=== PATIENT | female | born 1960 | race American Indian/Alaskan Native ===

== ENCOUNTER 2022-06-02 03:59 | Inpatient (IN) | payer MEDICAID ==
[2022-06-02] MEDS ORDERED: ONDANSETRON 4 MG ODT TAB PO ONE (04:21)
[2022-06-02] MEDS ORDERED: MORPHINE 4 MG/1 ML INJ IV ONE (04:21)
[2022-06-02] MEDS ORDERED: SODIUM CHLORIDE 0.9% 500 ML 500 ML IV ONE (04:21)
--- NOTE | 2022-06-02 04:24 | Event Note ---
Date: 06/02/22 EMS documentation not available at time of chart dictation Verbal report received from emergency medical services Medical screening examination note: 61-year-old female, with a history of stroke, unknown if residual deficits, presenting to the department today with a primary complaint of abdominal pain, with nausea and vomiting. She moves 4 extremities, speaks in complete sentences, and does not have dysarthria. There is no obvious facial droop. The tongue is midline. EMS is uncertain if the patient had a right-sided facial droop in the field. They report that Accu-Chek is within normal limits. Obtain appropriate laboratory studies, treat symptoms, obtain appropriate imaging studies, EKG, detailed history and physical to be performed by oncoming provider At the moment, the patient is protecting airway, moving 4 extremities, blood pressure is reported to be within normal limits and acceptable, and the presentation at this time is not consistent with an acute ischemic stroke
[2022-06-02 05:07] LABS: Basophils # (Auto) 0.1 K/mm3 (0.0-0.1); Basophils % (Auto) 0.6 % (0.0-1.8); Eosinophils # (Auto) 0.3 K/mm3 (0.0-0.4); Hematocrit 39.9 % (30.3-42.9); Hemoglobin 12.8 gm/dl (10.1-14.3); Lymphocytes # (Auto) 1.7 K/mm3 (1.2-5.4); Lymphocytes % (Auto) 13.7 % (13.4-35.0); Mean Corpuscular HGB Conc 32 % (30-34); Mean Corpuscular Volume 81 fl (79-97); Monocytes # (Auto) 0.7 K/mm3 (0.0-0.8); Monocytes % (Auto) 5.7 % (0.0-7.3); Platelet Count 392 K/mm3 (140-440); Red Blood Count 4.93 M/mm3 (3.65-5.03)
[2022-06-02 05:16] LABS: INR 0.87 (0.87-1.13)
[2022-06-02 05:27] LABS: Alanine Aminotransferase 19 units/L (7-56); Albumin 5.2 g/dL (3.9-5); BUN/Creatinine Ratio 14; Bilirubin,Direct < 0.2 mg/dL (0-0.2); Blood Urea Nitrogen 26 mg/dL (7-17); Calcium 11.4 mg/dL (8.4-10.2); Hemolysis Index 11
[2022-06-02] MEDS ORDERED: SODIUM CHLORIDE 0.9% 1000 ML 1,000 ML IV ONE (05:41)
--- NOTE | 2022-06-02 06:28 | Cat Scan Report ---
CT head without contrast INDICATION : History of stroke. TECHNIQUE: Axial imaging performed from the skull apex through the skull base without the use of con trast. All CT examinations performed at this facility utilize dose modulation, iterative reconstruct ion or weight-based dosing, when appropriate, to reduce radiation dose to as low as reasonably achiev able. COMPARISON: None FINDINGS: Focal chronic appearing infarct identified along the right frontoparietal lobe near the melchor cande. No acute intracranial hemorrhage or parenchymal abnormality. Ventricles are normal in size and appear symmetric. Soft tissues including the orbits appear normal. No acute osseous abnormality. Sinuses and mastoid air cells are clear. IMPRESSION: No acute intracranial abnormality. Signer Name: Isiah Kay MD Signed: 06/02/2022 6:23 AM Workstation Name: [email or web address]
--- NOTE | 2022-06-02 06:32 | Cat Scan Report ---
CT ABDOMEN AND PELVIS WITHOUT CONTRAST INDICATION / CLINICAL INFORMATION: Acute abdominal pain with nausea and vomit. TECHNIQUE: Axial CT images were obtained through the abdomen and pelvis without IV contrast. All CT scans at [facility] location are performed using CT dose reduction for ALARA by means of automated exposure control. COMPARISON: None available. FINDINGS: LOWER CHEST: No significant abnormality. LIVER: No significant abnormality. GALLBLADDER: Fluid distended with multiple gallstones. BILE DUCTS: No significant abnormality. PANCREAS: No significant abnormality. SPLEEN: No significant abnormality. ADRENALS: No significant abnormality. RIGHT KIDNEY and URETER: No significant abnormality. LEFT KIDNEY and URETER: No significant abnormality. STOMACH and SMALL BOWEL: No significant abnormality. COLON: Mild fluid-filled:. . PERITONEUM: No free fluid. No free air. No fluid collection. LYMPH NODES: No significant adenopathy. AORTA and ARTERIES: Mild atherosclerotic disease. Mild ectasia. IVC and VEINS: No significant abnormality. URINARY BLADDER: No significant abnormality. REPRODUCTIVE ORGANS: The right adnexa/ovary is asymmetric with enlarged with respect to the left and contains several calcifications. ADDITIONAL FINDINGS: None. SKELETAL SYSTEM: No significant abnormality. IMPRESSION: 1. Fluid distended gallbladder with multiple gallstones. 2. The right ovary appears mildly asymmetrically enlarged with respect to the left and contain severa l small calcifications. Pelvic ultrasound/[employer]ILING[employer] INSTRUCTOR consultation suggested. Signer Name: Isiah Kay MD Signed: 06/02/2022 6:28 AM Workstation Name: [email or web address]
[2022-06-02] MEDS ORDERED: MAGNESIUM SULFATE 2 GM/50 ML BAG IV ONE (07:21)
--- NOTE | 2022-06-02 07:42 | Emergency Department Report ---
HPI - General Chief Complaint: Abdominal Pain Time Seen by Provider: 06/02/22 07:18 - [facility] HPI: Room 18 The patient is a 61-year-old female present with a chief complaint of abdominal pain. The patient states last night at approximately 2200 she developed diffuse periumbilical abdominal pain described as cramping in nature. Patient states the pain was constant and associated with it frequent diarrhea. Patient states she did not develop nausea and vomiting. Patient denies history of fever. Patient states her last meal prior to her symptoms included a hamburger which she ate 4 hours prior to the onset of pain. ED Past Medical Hx - Past Medical History Previous Medical History?: Yes Hx Hypertension: Yes Hx Diabetes: Yes - Surgical History Past Surgical History?: No - Family History Family history: no significant - Social History Smoking Status: Former Smoker (None x40 years) Substance Use Type: None (Denies illicit drug use) ED Review of Systems ROS: Stated complaint: N/V/D- ABD PAIN Other details as noted in HPI Constitutional: denies: fever Eyes: denies: eye pain ENT: denies: throat pain Respiratory: no symptoms reported Cardiovascular: denies: chest pain Endocrine: no symptoms reported Gastrointestinal: abdominal pain, nausea, vomiting, diarrhea Genitourinary: denies: dysuria Musculoskeletal: denies: back pain Neurological: denies: headache Physical Exam - Physical Exam Vital Signs: Vital Signs 06/02/22 06/02/22 04:00 06:22 Temperature 99.1 F Pulse Rate 82 Respiratory 18 20 Rate Blood Pressure 115/81 O2 Sat by Pulse 100 99 Oximetry Physical Exam: GENERAL: The patient is well-developed well-nourished female lying on stretcher not appearing to be in acute distress. [] HEENT: Normocephalic. Atraumatic. Extraocular motions are intact. Patient has moist mucous membranes. NECK: Supple. Trachea midline CHEST/LUNGS: Clear to auscultation. There is no respiratory distress noted. HEART/CARDIOVASCULAR: Regular. There is no tachycardia. There is no gallop rub or murmur. ABDOMEN: Abdomen is soft, nontender. Patient has normal bowel sounds. There is no abdominal distention. Absent Jensen sign SKIN: There is no rash. There is no edema. There is no diaphoresis. NEURO: The patient is awake, alert, and oriented. The patient is cooperative. The patient has no focal neurologic deficits. The patient has normal speech. GCS 15 MUSCULOSKELETAL: There is no evidence of acute injury. ED Course Vital Signs 06/02/22 06/02/22 04:00 06:22 Temperature 99.1 F Pulse Rate 82 Respiratory 18 20 Rate Blood Pressure 115/81 O2 Sat by Pulse 100 99 Oximetry - Consultations Consultation #1: 06/02/22 09:36 Surgery paged-Case discussed with surgeon Dr. Beltran. Will evaluate patient 06/02/22 11:[address] Beltran patient to be admitted by the hospitalist with plan for cholecystectomy ED Medical Decision Making - Lab Data Result diagrams: 06/02/22 04:40 06/02/22 04:40 Laboratory Tests 06/02/22 06/02/22 06/02/22 04:40 04:40 04:40 WBC 12.6 H RBC 4.93 Hgb 12.8 Hct 39.9 MCV 81 MCH 26 L MCHC 32 RDW 17.0 H Plt Count 392 Lymph % (Auto) 13.7 [place] % (Auto) 5.7 Eos % (Auto) 2.0 Baso % (Auto) 0.6 Lymph # (Auto) 1.7 [place] # (Auto) 0.7 Eos # (Auto) 0.3 Baso # (Auto) 0.1 Seg Neutrophils % 78.0 H Seg Neutrophils # 9.9 H PT 12.8 INR 0.87 Sodium 144 Potassium 3.8 Chloride 104.5 Carbon Dioxide 20 L Anion Gap 23 BUN 26 H Creatinine 1.9 H Estimated GFR 27 BUN/Creatinine Ratio 14 Glucose 204 H Calcium 11.4 H Magnesium Total Bilirubin 0.40 Direct Bilirubin < 0.2 Indirect Bilirubin 0.2 AST 18 ALT 19 Alkaline Phosphatase 108 Total Creatine Kinase Troponin T Total Protein 9.1 H Albumin 5.2 H Albumin/Globulin Ratio 1.3 Lipase 43 TSH Plasma/Serum Alcohol 06/02/22 06/02/22 06/02/22 04:40 04:40 04:40 WBC RBC Hgb Hct MCV MCH MCHC RDW Plt Count Lymph % (Auto) [place] % (Auto) Eos % (Auto) Baso % (Auto) Lymph # (Auto) [place] # (Auto) Eos # (Auto) Baso # (Auto) Seg Neutrophils % Seg Neutrophils # PT INR Sodium Potassium Chloride Carbon Dioxide Anion Gap BUN Creatinine Estimated GFR BUN/Creatinine Ratio Glucose Calcium Magnesium 1.60 L Total Bilirubin Direct Bilirubin Indirect Bilirubin AST ALT Alkaline Phosphatase Total Creatine Kinase 169 H Troponin T < 0.010 Total Protein Albumin Albumin/Globulin Ratio Lipase TSH 2.520 Plasma/Serum Alcohol < 0.01 - Radiology Data Radiology results: image reviewed (CT abdomen pelvis, portable quadrant ultrasound, pelvic ultrasound) [address] [address] Ultrasound Report Signed Patient: NOLA RANDOLPH MR#: [id number] : 1960 Acct:[id number] Age/Sex: 61 / F ADM Date: 06/02/22 Loc: ED Attending Dr: Ordering Physician: ROBERT JORDAN MD Date of Service: 06/02/22 Procedure(s): US transvaginal Accession Number(s): [id number] cc: ROBERT JORDAN MD ULTRASOUND PELVIS INDICATION: Abnormal appearing ovary on CT. TECHNIQUE: Transabdominal and Transvaginal. Duplex Color Doppler used: Yes. COMPARISON: None available FINDINGS: Uterus: Present. Size: 7.6 x 3.2 x 5.9 cm. Endometrial complex: Normal measuring 0.3 cm. Mass lesions: 3.8 cm pedunculated fibroid. Additional findings: None. Right Ovary -- Normal. Blood flow: Normal. Cyst or mass: None. Left Ovary-- Normal. Blood flow: Normal. Cyst or mass: None. Urinary Bladder: Normal. Free Fluid: None. Additional Findings: None. [address] [address] Ultrasound Report Signed Patient: NOLA RANDOLPH MR#: [id number] : 1960 Acct:[id number] Age/Sex: 61 / F ADM Date: 06/02/22 Loc: ED Attending Dr: Ordering Physician: ROBERT JORDAN MD Date of Service: 06/02/22 Procedure(s): US abdomen limited Accession Number(s): [id number] cc: ROBERT JORDAN MD ULTRASOUND ABDOMEN, LIMITED INDICATION / CLINICAL INFORMATION: Abdominal pain nausea vomiting. COMPARISON: CT earlier the same day. FINDINGS: PANCREAS: Visualized portion shows no significant abnormality. LIVER: No significant abnormality. Normal hepatopedal blood flow in the main portal vein. GALLBLADDER: Gallstones with gallbladder distention. No wall thickening BILE DUCTS: Upper normal. Common bile duct measures 6 mm. FREE FLUID: None. ADDITIONAL FINDINGS: None. IMPRESSION: 1. Gallbladder distended with stones but demonstrates no wall thickening. 2. Common bile duct upper limits of normal in size. Signer Name: Tyron Greene MD Signed: 06/02/2022 8:51 AM Workstation Name: [id number] Transcribed By: ES Dictated By: Tyron Greene MD Electronically Authenticated By: Tyron Greene MD Signed Date/Time: 06/02/22850 DD/ 8 TD/TT: - Differential Diagnosis Gastroenteritis, partial small bowel obstruction, symptomatic cholelithiasi Critical care attestation.: If time is entered above; I have spent that time in minutes in the direct care of this critically ill patient, excluding procedure time. ED Disposition Clinical Impression: Symptomatic cholelithiasis, Acute abdominal pain Disposition: ADMITTED INPATIENT Is pt being admited?: Yes Does the pt Need Aspirin: No Condition: Fair Instructions: Abdominal Pain (ED) Referrals: LIANG STEEL MD [Primary Care Provider] - 3-5 Days Time of Disposition: 11:11 (Care transferred to hospitalist (Dr. Villarreal))
--- NOTE | 2022-06-02 08:55 | Ultrasound Report ---
ULTRASOUND ABDOMEN, LIMITED INDICATION / CLINICAL INFORMATION: Abdominal pain nausea vomiting. COMPARISON: CT earlier the same day. FINDINGS: PANCREAS: Visualized portion shows no significant abnormality. LIVER: No significant abnormality. Normal hepatopedal blood flow in the main portal vein. GALLBLADDER: Gallstones with gallbladder distention. No wall thickening BILE DUCTS: Upper normal. Common bile duct measures 6 mm. FREE FLUID: None. ADDITIONAL FINDINGS: None. IMPRESSION: 1. Gallbladder distended with stones but demonstrates no wall thickening. 2. Common bile duct upper limits of normal in size. Signer Name: Tyron Greene MD Signed: 06/02/2022 8:51 AM Workstation Name: [id number]
--- NOTE | 2022-06-02 08:58 | Ultrasound Report ---
ULTRASOUND PELVIS INDICATION: Abnormal appearing ovary on CT. TECHNIQUE: Transabdominal and Transvaginal. Duplex Color Doppler used: Yes. COMPARISON: None available FINDINGS: Uterus: Present. Size: 7.6 x 3.2 x 5.9 cm. Endometrial complex: Normal measuring 0.3 cm. Mass lesions: 3.8 cm pedunculated fibroid. Additional findings: None. Right Ovary -- Normal. Blood flow: Normal. Cyst or mass: None. Left Ovary-- Normal. Blood flow: Normal. Cyst or mass: None. Urinary Bladder: Normal. Free Fluid: None. Additional Findings: None. IMPRESSION: 1. Pedunculated uterine fibroid . 2. No right adnexal lesion identified. Signer Name: Tyron Greene MD Signed: 06/02/2022 8:54 AM Workstation Name: [id number]
[2022-06-02] MEDS ORDERED: ACETAMINOPHEN 325 MG TAB PO PRN ×3 (11:13→17:09)
[2022-06-02] MEDS ORDERED: MORPHINE 2 MG/1 ML INJ IV PRN (11:13)
[2022-06-02] MEDS ORDERED: ONDANSETRON 4 MG/2 ML INJ IV PRN ×2 (11:13→17:09)
--- NOTE | 2022-06-02 11:21 | Consultation ---
History of Present Illness Consult date: 06/02/22 Reason for consult: gallstones - History of present illness History of present illness: General surgery called to see this 61-year-old female presented to the emergency room with acute 1 day onset abdominal pain that started at her umbilicus with some epigastric pain. Pain was 10 out of 10 at its worst. She had a basal vagal faint response mostly in the emergency room. Patient says that she had some nausea no vomiting however her pain currently has resolved. Patient abdominal CT scan and ultrasound that showed a distended gallbladder with no significant gallbladder wall thickening and gallstones. Patient's liver functi on panel is within normal limits. Patient denies ever having been diagnosed with gallstones before. Past History Past Medical History: diabetes, hypertension, hyperlipidemia Past Surgical History: Other (tubal ligation) Social history: no significant social history, Family history: other (gallstones) Medications and Allergies Allergies Allergy/AdvReac Type Severity Reaction Status Date / Time No Known Allergies Allergy Verified 06/02/22 06:08 Review of Systems All systems: negative - Constitutional weakness - Gastrointestinal abdominal pain, nausea Exam Vital Signs Temp Pulse Resp BP Pulse Ox 99.1 F 82 18 115/81 100 06/02/22 04:00 06/02/22 04:00 06/02/22 04:00 06/02/22 04:00 06/02/22 04:00 - General physical appearance Positive: well developed, well nourished, no distress, no pain - Eyes Positive: PERRL. Negative: icteric - ENT Positive: no hearing loss - Respiratory Positive: normal expansion, normal respiratory effort - Cardiovascular Heart Sounds: Present: S1 & S2 - Extremities Extremities: no ischemia - Abdomen Abdomen: Present: soft. Absent: tender, distended, guarding, rigid - Neurologic Neurologic: alert and oriented to time, place and person, motor strength and sensation are grossly intact, CN II-XII intact Results - Labs 06/02/22 04:40 06/02/22 04:40 Abnormal lab results 06/02/22 06/02/22 06/02/22 Range/Units 04:40 04:40 04:40 WBC 12.6 H (4.5-11.0) K/mm3 MCH 26 L (28-32) pg RDW 17.0 H (13.2-15.2) % Seg Neutrophils % 78.0 H (40.0-70.0) % Seg Neutrophils # 9.9 H (1.8-7.7) K/mm3 Carbon Dioxide 20 L (22-30) mmol/L BUN 26 H (7-17) mg/dL Creatinine 1.9 H (0.6-1.2) mg/dL Glucose 204 H (65-100) mg/dL Calcium 11.4 H (8.4-10.2) mg/dL Magnesium 1.60 L (1.7-2.3) mg/dL Total Creatine Kinase 169 H (30-135) units/L Total Protein 9.1 H (6.3-8.2) g/dL Albumin 5.2 H (3.9-5) g/dL Diabetes panel 06/02/22 Range/Units 04:40 Sodium 144 (137-145) mmol/L Potassium 3.8 (3.6-5.0) mmol/L Chloride 104.5 (98-107) mmol/L Carbon Dioxide 20 L (22-30) mmol/L BUN 26 H (7-17) mg/dL Creatinine 1.9 H (0.6-1.2) mg/dL Glucose 204 H (65-100) mg/dL Calcium 11.4 H (8.4-10.2) mg/dL AST 18 (5-40) units/L ALT 19 (7-56) units/L Alkaline Phosphatase 108 (35-129) units/L Total Protein 9.1 H (6.3-8.2) g/dL Albumin 5.2 H (3.9-5) g/dL Thyroid panel 06/02/22 Range/Units 04:40 TSH 2.520 (0.270-4.200) mlU/mL Calcium panel 06/02/22 Range/Units 04:40 Calcium 11.4 H (8.4-10.2) mg/dL Albumin 5.2 H (3.9-5) g/dL Pituitary panel 06/02/22 06/02/22 Range/Units 04:40 04:40 Sodium 144 (137-145) mmol/L Potassium 3.8 (3.6-5.0) mmol/L Chloride 104.5 (98-107) mmol/L Carbon Dioxide 20 L (22-30) mmol/L BUN 26 H (7-17) mg/dL Creatinine 1.9 H (0.6-1.2) mg/dL Glucose 204 H (65-100) mg/dL Calcium 11.4 H (8.4-10.2) mg/dL TSH 2.520 (0.270-4.200) mlU/mL Adrenal panel 06/02/22 Range/Units 04:40 Sodium 144 (137-145) mmol/L Potassium 3.8 (3.6-5.0) mmol/L Chloride 104.5 (98-107) mmol/L Carbon Dioxide 20 L (22-30) mmol/L BUN 26 H (7-17) mg/dL Creatinine 1.9 H (0.6-1.2) mg/dL Glucose 204 H (65-100) mg/dL Calcium 11.4 H (8.4-10.2) mg/dL Total Bilirubin 0.40 (0.1-1.2) mg/dL AST 18 (5-40) units/L ALT 19 (7-56) units/L Alkaline Phosphatase 108 (35-129) units/L Total Protein 9.1 H (6.3-8.2) g/dL Albumin 5.2 H (3.9-5) g/dL - Imaging CT scan - abdomen: report reviewed, image reviewed CT scan - pelvis: report reviewed, image reviewed US - abdomen: report reviewed, image reviewed US - pelvic: report reviewed, image reviewed Assessment and Plan 61-year-old female with symptoms consistent with symptomatic cholelithiasis. Patient is afebrile and stable. Pathology and treatment options both surgical and nonsurgical were discussed with the patient. At this time she would like to proceed with cholecystectomy this admission. Patient will be admitted to the hospitalist service and will coordinate with the OR to hopefully perform laparoscopic cholecystectomy next 48 hours. N.p.o. after midnight.
--- NOTE | 2022-06-02 13:46 | History and Physical Report ---
History of Present Illness Date of examination: 06/02/22 Date of admission: 06/02/22 11:13 Chief complaint: Abdominal pain for 1 day History of present illness: 61-year-old female with history of hypertension and diabetes comes in for acute onset of upper abdominal. Associated with nausea and vomiting. Abdominal pain is epigastric and right upper quadrant pain is about 8 on a scale of 1-10. Intermittent in nature. Sharp. Exacerbated with intake. Relieved by eating anything. Vomited about 3-4 times. No fever or chills. Patient had a hamburger before the onset of abdominal pain. - Past Medical History Previous Medical History?: Yes --Hypertension: Yes --Diabetes: Yes - Surgical History -- No - Family History --Family history: no significant - Social History --Smoking Status: Former Smoker (None x40 years) --Substance Use Type: None (Denies illicit drug use) ROS Constitutional no weight loss or weight gain no fever or chills HEENT no sore throat no post nasal drip no diplopia Neck no neck stiffness no lymph gland enlargement Chest and lungs no shortness of breath cough or wheezing CVS no chest pain no diaphoresis no palpitations GI nausea vomiting and diarrhea. Severe abdominal pain severe right upper quadrant pain. 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 Skin no rash no itching Psychiatric no depression no homicidal or suicidal tendencies Hematologic no lymphedema or bruising Endocrine no polydipsia no polyuria no cold intolerance no heat intolerance Past History Past Medical History: diabetes, hypertension, hyperlipidemia Past Surgical History: Other (tubal ligation) Social history: no significant social history, Family history: other (gallstones) Medications and Allergies Allergies Allergy/AdvReac Type Severity Reaction Status Date / Time No Known Allergies Allergy Verified 06/02/22 06:08 Home Medications Medication Instructions Recorded Confirmed Last Taken Type Alirocumab [Praluent Pen] 150 mg SQ QMONTH 06/02/22 06/02/22 Unknown History Aspirin [Aspirin BABY CHEW TAB] 81 mg PO QDAY 06/02/22 06/02/22 Unknown History Atorvastatin [Lipitor Tab] 80 mg PO QHS 06/02/22 06/02/[address] [Voltaren Dr] 75 mg PO DAILY 06/02/22 06/02/22 Unknown History Gabapentin [Neurontin] 300 mg PO DAILY 06/02/22 06/02/22 Unknown History Insulin Degludec [Tresiba] 72 unit SQ DAILY 06/02/22 06/02/22 Unknown History Insulin Lispro [Humalog] 10 unit SQ AC 06/02/22 06/02/22 Unknown History Liraglutide [Victoza 2-Abdifatah] 1.8 mg SQ QDAY 06/02/22 06/02/22 Unknown History Metoprolol [Lopressor] 100 mg PO BID 06/02/22 06/02/22 Unknown History Pantoprazole [Protonix] 40 mg PO QDAY 06/02/22 06/02/22 Unknown History allopurinoL [Zyloprim] 300 mg PO QDAY 06/02/22 06/02/22 Unknown History amLODIPine [Norvasc] 10 mg PO DAILY 06/02/22 06/02/22 Unknown History Active Meds: Active Medications Acetaminophen (Acetaminophen 325 Mg Tab) 650 mg PO Q4H PRN PRN Reason: Pain MILD(1-3)/Fever >100.5/JACKSON Levofloxacin/Dextrose (Levaquin 750mg/150ml) 750 mg in 150 mls @ 100 mls/hr IV Q48H CALI; Protocol Last Admin: 06/02/22 13:21 Dose: 100 mls/hr Morphine Sulfate (Morphine 2 Mg/1 Ml Inj) 2 mg IV Q4H PRN PRN Reason: Pain, Moderate (4-6) Ondansetron HCl (Ondansetron 4 Mg/2 Ml Inj) 4 mg IV Q8H PRN PRN Reason: Nausea And Vomiting Sodium Chloride (Sodium Chloride 0.9% 10 Ml Flush Syringe) 10 ml IV BID CALI Sodium Chloride (Sodium Chloride 0.9% 10 Ml Flush Syringe) 10 ml IV PRN PRN PRN Reason: LINE FLUSH Exam - Constitutional Vitals: Temp Pulse Resp BP Pulse Ox 99.1 F 77 17 167/95 95 06/02/22 04:00 06/02/22 13:00 06/02/22 13:00 06/02/22 13:00 06/02/22 13:00 General appearance: Present: mild distress, well-nourished - EENT Eyes: Present: PERRL ENT: hearing intact, clear oral mucosa - Neck Neck: Present: supple, normal ROM - Respiratory Respiratory effort: normal Respiratory: bilateral: CTA - Cardiovascular Heart rate: 78 Rhythm: regular Heart Sounds: Present: S1 & S2. Absent: rub, click - Extremities Extremities: no ischemia, pulses intact, pulses symmetrical, No edema Peripheral Pulses: within normal limits - Abdominal General gastrointestinal: Present: soft, non-tender, non-distended, normal bowel sounds Female genitourinary: Present: normal - Rectal Rectal Exam: deferred - Integumentary Integumentary: Present: clear, warm, dry - Musculoskeletal Musculoskeletal: gait normal, strength equal bilaterally - Psychiatric Psychiatric: appropriate mood/affect, intact judgment & insight - Neurologic Neurologic: CNII-XII intact, moves all extremities - Allied Health Allied health notes reviewed: nursing, case management HEART Score - HEART Score Troponin: Troponin T < 0.010 ng/mL (0.00-0.029) 06/02/22 04:40 Results - Labs CBC & Chem 7: 06/03/22 03:58 06/03/22 03:58 Labs: Laboratory Last Values WBC 12.6 K/mm3 (4.5-11.0) H 06/02/22 04:40 RBC 4.93 M/mm3 (3.65-5.03) 06/02/22 04:40 Hgb 12.8 gm/dl (10.1-14.3) 06/02/22 04:40 Hct 39.9 % (30.3-42.9) 06/02/22 04:40 MCV 81 fl (79-97) 06/02/22 04:40 MCH 26 pg (28-32) L 06/02/22 04:40 MCHC 32 % (30-34) 06/02/22 04:40 RDW 17.0 % (13.2-15.2) H 06/02/22 04:40 Plt Count 392 K/mm3 (140-440) 06/02/22 04:40 Lymph % (Auto) 13.7 % (13.4-35.0) 06/02/22 04:40 [place] % (Auto) 5.7 % (0.0-7.3) 06/02/22 04:40 Eos % (Auto) 2.0 % (0.0-4.3) 06/02/22 04:40 Baso % (Auto) 0.6 % (0.0-1.8) 06/02/22 04:40 Lymph # (Auto) 1.7 K/mm3 (1.2-5.4) 06/02/22 04:40 [place] # (Auto) 0.7 K/mm3 (0.0-0.8) 06/02/22 04:40 Eos # (Auto) 0.3 K/mm3 (0.0-0.4) 06/02/22 04:40 Baso # (Auto) 0.1 K/mm3 (0.0-0.1) 06/02/22 04:40 Seg Neutrophils % 78.0 % (40.0-70.0) H 06/02/22 04:40 Seg Neutrophils # 9.9 K/mm3 (1.8-7.7) H 06/02/22 04:40 PT 12.8 Sec. (12.2-14.9) 06/02/22 04:40 INR 0.87 (0.87-1.13) 06/02/22 04:40 Sodium 144 mmol/L (137-145) 06/02/22 04:40 Potassium 3.8 mmol/L (3.6-5.0) 06/02/22 04:40 Chloride 104.5 mmol/L (98-107) 06/02/22 04:40 Carbon Dioxide 20 mmol/L (22-30) L 06/02/22 04:40 Anion Gap 23 mmol/L 06/02/22 04:40 BUN 26 mg/dL (7-17) H 06/02/22 04:40 Creatinine 1.9 mg/dL (0.6-1.2) H 06/02/22 04:40 Estimated GFR 27 ml/min 06/02/22 04:40 BUN/Creatinine Ratio 14 % 06/02/22 04:40 Glucose 204 mg/dL (65-100) H 06/02/22 04:40 Calcium 11.4 mg/dL (8.4-10.2) H 06/02/22 04:40 Magnesium 1.60 mg/dL (1.7-2.3) L 06/02/22 04:40 Total Bilirubin 0.40 mg/dL (0.1-1.2) 06/02/22 04:40 Direct Bilirubin < 0.2 mg/dL (0-0.2) 06/02/22 04:40 Indirect Bilirubin 0.2 mg/dL 06/02/22 04:40 AST 18 units/L (5-40) 06/02/22 04:40 ALT 19 units/L (7-56) 06/02/22 04:40 Alkaline Phosphatase 108 units/L (35-129) 06/02/22 04:40 Total Creatine Kinase 169 units/L (30-135) H 06/02/22 04:40 Troponin T < 0.010 ng/mL (0.00-0.029) 06/02/22 04:40 Total Protein 9.1 g/dL (6.3-8.2) H 06/02/22 04:40 Albumin 5.2 g/dL (3.9-5) H 06/02/22 04:40 Albumin/Globulin Ratio 1.3 % 06/02/22 04:40 Lipase 43 units/L (13-60) 06/02/22 04:40 TSH 2.520 mlU/mL (0.270-4.200) 06/02/22 04:40 Plasma/Serum Alcohol < 0.01 % (0-0.07) 06/02/22 04:40 Short CBC 06/02/22 Range/Units 04:40 WBC 12.6 H (4.5-11.0) K/mm3 Hgb 12.8 (10.1-14.3) gm/dl Hct 39.9 (30.3-42.9) % Plt Count 392 (140-440) K/mm3 BMP 06/02/22 04:40 Sodium 144 Potassium 3.8 Chloride 104.5 Carbon Dioxide 20 L BUN 26 H Creatinine 1.9 H Glucose 204 H Calcium 11.4 H Cardiac Enzymes 06/02/22 Range/Units 04:40 Total Creatine Kinase 169 H (30-135) units/L Troponin T < 0.010 (0.00-0.029) ng/mL Liver Function 06/02/22 Range/Units 04:40 Total Bilirubin 0.40 (0.1-1.2) mg/dL Direct Bilirubin < 0.2 (0-0.2) mg/dL AST 18 (5-40) units/L ALT 19 (7-56) units/L Alkaline Phosphatase 108 (35-129) units/L Albumin 5.2 H (3.9-5) g/dL Short CBC 06/03/22 Range/Units 03:58 WBC 8.6 (4.5-11.0) K/mm3 Hgb 10.3 (10.1-14.3) gm/dl Hct 31.9 D (30.3-42.9) % Plt Count 288 (140-440) K/mm3 BMP 06/03/22 03:58 Sodium 145 Potassium 3.5 L Chloride 109.8 H Carbon Dioxide 22 BUN 18 H Creatinine 1.2 Glucose 107 H Calcium 8.7 D Liver Function 06/03/22 Range/Units 03:58 Total Bilirubin 0.40 (0.1-1.2) mg/dL AST 14 (5-40) units/L ALT 12 (7-56) units/L Alkaline Phosphatase 80 (35-129) units/L Albumin 3.9 (3.9-5) g/dL - Imaging and Cardiology Imaging and Cardiology: Head CT No acute intracranial abnormalities Abdomen and pelvis CT Fluid distended gallbladder with multiple gallstones. Right ovary appears mildly asymmetrically enlarged with respect to the left and contains several small calcifications. Pelvic ultrasound/[facility] consultation status Abdomen ultrasound. Valvular distended with stones were demonstrated no wall thickening. Common bile duct upper limits of normal in size. Pelvic ultrasound Related uterine fibroid no right adnexal lesion identified. Transforaminal ultrasound Preventative uterine fibroids No right adnexal lesion identified Assessment and Plan Advance Directives: Yes (Full code) VTE prophylaxis?: Chemical Plan of care discussed with patient/family: Yes - Patient Problems (1) Cholelithiasis Current Visit: Yes Status: Acute Qualifiers: Cholelithiasis location: gallbladder Cholecystitis acuity: acute and chronic Biliary obstruction: without biliary obstruction Plan to address problem: Surgery consult requested Defer to surgery regarding cholecystectomy Pain management IV fluids (2) NANCY (acute kidney injury) Current Visit: Yes Status: Acute Plan to address problem: Vasomotor nephropathy IV fluids for now Monitor creatinine (3) Hypertension Current Visit: Yes Status: Chronic Qualifiers: Hypertension type: primary hypertension Qualified Code(s): I10 - Essential (primary) hypertension Plan to address problem: Continue antihypertensives and adjust medications Catapres patch if necessary (4) T2DM (type 2 diabetes mellitus) Current Visit: Yes Status: Chronic Qualifiers: Diabetes mellitus long term care pharmacist insulin use: unspecified jail insulin use status Plan to address problem: Coverage for now Check hemoglobin A1c High-dose sliding scale protocol (5) Hypomagnesemia Current Visit: Yes Status: Acute Plan to address problem: Supplemented (6) DVT prophylaxis Current Visit: Yes Status: Acute Plan to address problem: On anticoagulation GI prophylaxis (7) Advance care planning Current Visit: Yes Status: Acute Plan to address problem: Disease education conducted, care plan discussed, diagnosis discussed and prognosis discussed. Patient acknowledges understanding with care plan. +30 minutes.
[2022-06-02] MEDS ORDERED: METOCLOPRAMIDE 10 MG/2 ML INJ IV PRN (13:50)
[2022-06-02] MEDS ORDERED: HYDROmorphone 0.5 MG/0.5 ML INJ IV PRN (13:50)
[2022-06-02] MEDS ORDERED: PIPERACIL/TAZOBACTA 4.5/NS 100 4.5 GM/100 ML VIAL IV SCH (17:00)
[2022-06-02] MEDS: FAMOTIDINE 20 MG/2 ML INJ IV SCH ×2 (17:54→21:31)
[2022-06-02] MEDS ORDERED: cloNIDine TTS 0.3 MG/24 HR PATCH TD SCH (21:00)
[2022-06-02] MEDS: SODIUM CHLORIDE 0.9% 1000 ML 1,000 ML IV SCH (21:30)
[2022-06-02] MEDS: INSULIN LISPRO 100 UNIT/ML SUB-Q SCH (21:41)
[2022-06-03] MEDS ORDERED: PIPERACIL/TAZOBACTA 4.5/NS 100 4.5 GM/100 ML VIAL IV SCH (02:00)
[2022-06-03] MEDS: INSULIN LISPRO 100 UNIT/ML SUB-Q SCH ×5 (02:10→23:45)
[2022-06-03 04:59] LABS: Basophils % (Auto) 0.3 % (0.0-1.8); Eosinophils # (Auto) 0.2 K/mm3 (0.0-0.4); Eosinophils % (Auto) 1.9 % (0.0-4.3); Hematocrit 31.9 % (30.3-42.9); Hemoglobin 10.3 gm/dl (10.1-14.3); Lymphocytes # (Auto) 1.3 K/mm3 (1.2-5.4); Lymphocytes % (Auto) 15.3 % (13.4-35.0); Mean Corpuscular HGB Conc 32 % (30-34); Mean Corpuscular Volume 82 fl (79-97); Monocytes # (Auto) 0.7 K/mm3 (0.0-0.8); Monocytes % (Auto) 7.6 % (0.0-7.3); Platelet Count 288 K/mm3 (140-440); Red Cell Distribution Width 16.5 % (13.2-15.2)
[2022-06-03 05:18] LABS: Albumin 3.9 g/dL (3.9-5); Calcium 8.7 mg/dL (8.4-10.2)
[2022-06-03] MEDS ORDERED: MAGNESIUM SULFATE 2 GM/50 ML BAG IV ONE (06:14)
[2022-06-03 06:38] LABS: Color,Urine Straw (Yellow)
[2022-06-03] MEDS: SODIUM CHLORIDE 0.9% 1000 ML 1,000 ML IV SCH (08:54)
[2022-06-03] MEDS: FAMOTIDINE 20 MG/2 ML INJ IV SCH ×2 (09:03→23:39)
--- NOTE | 2022-06-03 11:29 | Progress Note ---
Assessment and Plan Assessment and plan: #Acute cholecystitis CT abdomen and pelvis without contrast (06/02/2022) revealing fluid distended gallbladder with multiple gallstones; right ovary appearing mildly as ymmetrically enlarged with respect to the left and containing several small calcifications. Right upper quadrant ultrasound (06/02/2022) revealing "gallbladder distended with stones but demonstrates no wall thickening. Common bile duct upper limits of normal in size." Continue n.p.o. status and continue analgesics as needed. General surgery consulted; appreciate recs Continue Levaquin 750 mg daily. #NANCY secondary to vasomotor nephropathyresolved Creatinine 1.9--> 1.2 #Hyperlipidemia #Hypertension - home medications: Aspirin 81 mg daily, amlodipine 10 mg daily, atorvastatin 80 mg daily, metoprolol tartrate 100 mg twice daily - current medications: Clonidine patch 0.3 mg weekly - SBP goal <160 and DBP goal <90 while inpatient - continue to monitor #Insulin dependent type II diabetes mellitus - hemoglobin A1c: Unknown - home regimen: Tresiba 72 units daily, lispro 10 units with meals, gabapentin 300 mg daily - current regimen: Moderate SSI - blood glucose goal 140-180 while inpatient - continue to monitor #GERD Continue home pantoprazole 40 mg daily #Gout Continue home allopurinol 300 mg daily #Hypomagnesemia Supplemented. #Advanced care planning -Disease education conducted, care plan discussed, diagnoses discussed, prognosis discussed, and patient acknowledges understanding with care plan -Time: +30 min Disposition Plan: Continue medical management Total Time Spent with Patient (Minutes): 45 minutes History Interval history: No acute events overnight. Hospitalist Physical - Constitutional Vitals: Temp Pulse Resp BP Pulse Ox 98.2 F 71 17 149/82 99 06/03/22 07:10 06/03/22 07:10 06/03/22 07:10 06/03/22 07:10 06/03/22 07:10 General appearance: Present: mild distress, well-nourished - EENT Eyes: Present: PERRL, EOM intact ENT: hearing intact, clear oral mucosa - Neck Neck: Present: supple, normal ROM - Respiratory Respiratory effort: normal Respiratory: bilateral: CTA - Cardiovascular Rhythm: regular Heart Sounds: Present: S1 & S2 - Extremities Extremities: no ischemia, pulses intact, pulses symmetrical, No edema, normal temperature, normal color Peripheral Pulses: within normal limits - Abdominal General gastrointestinal: soft, tender, non-distended, normal bowel sounds Localized gastrointestinal: tender: RUQ - Integumentary Integumentary: Present: clear, warm, dry - Psychiatric Psychiatric: appropriate mood/affect, intact judgment & insight, memory intact, cooperative - Neurologic Neurologic: CNII-XII intact, moves all extremities - Allied Health Allied health notes reviewed: nursing HEART Score - HEART Score Troponin: Troponin T < 0.010 ng/mL (0.00-0.029) 06/02/22 04:40 Results - Labs CBC & Chem 7: 06/03/22 03:58 06/03/22 03:58 Labs: Laboratory Last Values WBC 8.6 K/mm3 (4.5-11.0) 06/03/22 03:58 RBC 3.90 M/mm3 (3.65-5.03) 06/03/22 03:58 Hgb 10.3 gm/dl (10.1-14.3) 06/03/22 03:58 Hct 31.9 % (30.3-42.9) D 06/03/22 03:58 MCV 82 fl (79-97) 06/03/22 03:58 MCH 27 pg (28-32) L 06/03/22 03:58 MCHC 32 % (30-34) 06/03/22 03:58 RDW 16.5 % (13.2-15.2) H 06/03/22 03:58 Plt Count 288 K/mm3 (140-440) 06/03/22 03:58 Lymph % (Auto) 15.3 % (13.4-35.0) 06/03/22 03:58 [place] % (Auto) 7.6 % (0.0-7.3) H 06/03/22 03:58 Eos % (Auto) 1.9 % (0.0-4.3) 06/03/22 03:58 Baso % (Auto) 0.3 % (0.0-1.8) 06/03/22 03:58 Lymph # (Auto) 1.3 K/mm3 (1.2-5.4) 06/03/22 03:58 [place] # (Auto) 0.7 K/mm3 (0.0-0.8) 06/03/22 03:58 Eos # (Auto) 0.2 K/mm3 (0.0-0.4) 06/03/22 03:58 Baso # (Auto) 0.0 K/mm3 (0.0-0.1) 06/03/22 03:58 Seg Neutrophils % 74.9 % (40.0-70.0) H 06/03/22 03:58 Seg Neutrophils # 6.4 K/mm3 (1.8-7.7) 06/03/22 03:58 PT 12.8 Sec. (12.2-14.9) 06/02/22 04:40 INR 0.87 (0.87-1.13) 06/02/22 04:40 Sodium 145 mmol/L (137-145) 06/03/22 03:58 Potassium 3.5 mmol/L (3.6-5.0) L 06/03/22 03:58 Chloride 109.8 mmol/L (98-107) H 06/03/22 03:58 Carbon Dioxide 22 mmol/L (22-30) 06/03/22 03:58 Anion Gap 17 mmol/L 06/03/22 03:58 BUN 18 mg/dL (7-17) H 06/03/22 03:58 Creatinine 1.2 mg/dL (0.6-1.2) 06/03/22 03:58 Estimated GFR 55 ml/min 06/03/22 03:58 BUN/Creatinine Ratio 15 % 06/03/22 03:58 Glucose 107 mg/dL (65-100) H 06/03/22 03:58 POC Glucose 115 mg/dL (70-105) H 06/03/22 05:38 Hemoglobin A1c 9.0 % (4-6) H 06/03/22 03:58 Calcium 8.7 mg/dL (8.4-10.2) D 06/03/22 03:58 Magnesium 1.60 mg/dL (1.7-2.3) L 06/02/22 04:40 Total Bilirubin 0.40 mg/dL (0.1-1.2) 06/03/22 03:58 Direct Bilirubin < 0.2 mg/dL (0-0.2) 06/02/22 04:40 Indirect Bilirubin 0.2 mg/dL 06/02/22 04:40 AST 14 units/L (5-40) 06/03/22 03:58 ALT 12 units/L (7-56) 06/03/22 03:58 Alkaline Phosphatase 80 units/L (35-129) 06/03/22 03:58 Total Creatine Kinase 169 units/L (30-135) H 06/02/22 04:40 Troponin T < 0.010 ng/mL (0.00-0.029) 06/02/22 04:40 Total Protein 6.5 g/dL (6.3-8.2) D 06/03/22 03:58 Albumin 3.9 g/dL (3.9-5) 06/03/22 03:58 Albumin/Globulin Ratio 1.5 % 06/03/22 03:58 Lipase 43 units/L (13-60) 06/02/22 04:40 TSH 2.520 mlU/mL (0.270-4.200) 06/02/22 04:40 Urine Color Straw (Yellow) 06/03/22 06:26 Urine Turbidity Clear (Clear) 06/03/22 06:26 Specific [place] (Man) 1.025 (1.003-1.030) 06/03/22 06:26 Ur Protein (Man) 2+ mg/dL (Negative) 06/03/22 06:26 Ur Ketones (Man) Negative (Negative) 06/03/22 06:26 Ur Nitrite (Man) Negative (Negative) 06/03/22 06:26 Urine Bilirubin (Man) Negative (Negative) 06/03/22 06:26 Leukocyte Esterase (Man) Negative (Negative) 06/03/22 06:26 Urine WBC (Auto) 3.0 /HPF (0.0-6.0) 06/03/22 06:26 Urine RBC (Auto) 1.0 /HPF (0.0-6.0) 06/03/22 06:26 U Epithel Cells (Auto) < 1.0 /HPF (0-13.0) 06/03/22 06:26 Urine RBC (Manual) Negative (Negative) 06/03/22 06:26 Plasma/Serum Alcohol < 0.01 % (0-0.07) 06/02/22 04:40 [place]/IV: Voiding Method Toilet Active Medications - Current Medications Current Medications: Generic Name Dose Route Start Last Admin Trade Name Freq PRN Reason Stop Dose Admin Acetaminophen 650 mg 06/02/22 13:50 Acetaminophen 325 Mg Tab PO Q4H PRN Pain MILD(1-3)/Fever >100.5/JACKSON Clonidine HCl 0.3 mg 06/02/22 21:00 06/02/22 21:31 Clonidine Tts 0.3 Mg/24 Hr Patch TD 0.3 mg QWEEK CALI Administration Famotidine 20 mg 06/02/22 14:00 06/03/22 09:03 Famotidine 20 Mg/2 Ml Inj IV 20 mg BID CALI Administration Hydromorphone HCl 1 mg 06/02/22 13:50 Hydromorphone 0.5 Mg/0.5 Ml Inj IV Q3H PRN Pain , Severe (7-10) Levofloxacin/Dextrose 750 mg in 150 mls @ 100 mls/hr 06/02/22 12:00 06/02/22 17:55 Levaquin 750mg/150ml IV 100 mls/hr Q48H CALI Administration Protocol Sodium Chloride 1,000 mls @ 75 mls/hr 06/02/22 14:00 06/03/22 08:54 Nacl 0.9% 1000 Ml IV 75 mls/hr DIRECT CALI Administration Insulin Human Lispro 0 unit 06/02/22 22:00 06/03/22 10:11 Insulin Lispro 100 Unit/Ml SUB-Q Not Given Q4HR [facility] Protocol Metoclopramide HCl 10 mg 06/02/22 13:50 Metoclopramide 10 Mg/2 Ml Inj IV Q6H PRN Nausea And Vomiting Morphine Sulfate 2 mg 06/02/22 11:13 Morphine 2 Mg/1 Ml Inj IV Q4H PRN Pain, Moderate (4-6) Ondansetron HCl 4 mg 06/02/22 13:50 Ondansetron 4 Mg/2 Ml Inj IV Q8H PRN Nausea And Vomiting Sodium Chloride 10 ml 06/02/22 22:00 06/03/22 09:04 Sodium Chloride 0.9% 10 Ml Flush Syringe IV 10 ml BID CALI Administration Sodium Chloride 10 ml 06/02/22 11:13 Sodium Chloride 0.9% 10 Ml Flush Syringe IV PRN PRN LINE FLUSH Sodium Chloride 10 ml 06/02/22 22:00 Sodium Chloride 0.9% 10 Ml Flush Syringe IV BID CALI Sodium Chloride 10 ml 08/28/22 13:50 Sodium Chloride 0.9% 10 Ml Flush Syringe IV PRN PRN LINE FLUSH
--- NOTE | 2022-06-03 13:57 | Event Note ---
Date: 06/03/22 Patient seen and examined as well chart reviewed. No acute events overnight. Patient says that she feels otherwise well but would like her gallbladder removed this admission to avoid future attacks. Patient is on scheduled today for laparoscopic cholecystectomy.
--- NOTE | 2022-06-03 14:04 | Anesthesia Day of Surgery ---
Anesthesia Day of Surgery - Day of Surgery Patient Examined: Yes Patient H&P Reviewed: Yes Patient is NPO: Yes
--- NOTE | 2022-06-03 14:07 | Anesthesia Consultation ---
Anesthesia Consult and Med Hx Date of service: 06/03/22 - Airway Anesthetic Teeth Evaluation: Good ROM Head & Neck: Adequate Mental/Hyoid Distance: Adequate Mallampati Class: Class II Intubation Access Assessment: Good - Pulmonary Exam CTA: Yes - Cardiac Exam Cardiac Exam: RRR - Pre-Operative Health Status ASA Pre-Surgery Classification: ASA3 Proposed Anesthetic Plan: General - Pulmonary Hx Asthma: No Hx Pneumonia: No - Cardiovascular System Hx Hypertension: Yes Hx Coronary Artery Disease: Yes (stent x1 2016) - Central Nervous System Hx Seizures: Yes (2016 with CVA ) CVA: Yes (2016 no deficits) - Gastrointestinal Hx Gastroesophageal Reflux Disease: Yes - Endocrine Hx Insulin Dependent Diabetes: Yes
[2022-06-03] MEDS ORDERED: ROCURONIUM 50 MG/5 ML INJ IV ONE (16:03)
[2022-06-03] MEDS ORDERED: HYDROmorphone 1 MG/1 ML INJ ONE (16:03)
[2022-06-03] MEDS ORDERED: ONDANSETRON 4 MG/2 ML INJ ONE (16:03)
[2022-06-03] MEDS ORDERED: propofoL 200 MG/20 ML VIAL IV ONE (16:04)
[2022-06-03] MEDS ORDERED: dexAMETHasone 20 MG/5 ML VIAL ONE (16:09)
[2022-06-03] MEDS ORDERED: BUPIVACAINE/PF (0.5%) 5 MG/1 ML 30 ML VIAL INFILTRATI ONE ×2 (16:10→17:22)
[2022-06-03] MEDS ORDERED: LIDOCAINE 1%/EPINEPHRINE 1:100,000 VIAL (20 ML) INFILTRATI ONE ×2 (16:10→17:21)
[2022-06-03] MEDS ORDERED: ceFAZolin 1 GM VIAL ONE ×2 (17:16)
[2022-06-03] MEDS ORDERED: SODIUM CHLORIDE 0.9% IRR 1,500 ML BOTTLE IR ONE (17:22)
[2022-06-03] MEDS ORDERED: LACTATED RINGERS 2,000 ML ONE (17:54)
[2022-06-03] MEDS ORDERED: NEOSTIGMINE 10MG/10 ML INJ MDV ONE ×2 (18:00→18:01)
[2022-06-03] MEDS ORDERED: GLYCOPYRROLATE 0.4 MG/2 ML INJ ONE (18:01)
[2022-06-03] MEDS ORDERED: SODIUM CHLORIDE 0.9% IRRIG SOLN 2000 ML IR ONE (18:32)
--- NOTE | 2022-06-03 18:42 | Operative Report ---
Operative Report Operative Report: Procedure Performed: Lap cholecystectomy Dates of Service: 06/03/2022 Primary Surgeon: Marcelino Beltran MD Assisted by: Kajal Renteria DO Anesthesia: General Pre-Operative Diagnosis: symptomatic cholelithiasis Post-Operative Diagnosis: Same Indications for Procedure: 61 year old female presented to ED with abdominal pain. Abdominal CT and US showed gallstones. Pt was consented Description of Procedure(s): The patient was brought to the operating room and underwent general anesthesia after lower extremity SCD were placed. The abdomen was prepped and draped in the standard fashion. IV antibiotics were given and a time out was performed. Using a veress needle via a stab incision in the left subcostal region, the abdomen was insuflated to a pressure of 15mmHg. Using optivew technique, a 5mm trocar was placed just superior and to the left of the umbilicus. There was no gross injury noted to any intra-abdominal structures. After which working trocars were placed under direct visualization. A 12 mm trocar was placed in the epigastrium, and two more 5 mm trocars were inserted in the right lateral sites. The gallbladder was located and grasped at the fundus and retracted up toward the patient's right shoulder. The infundibulum was grasped and retracted laterally. A window was made between the cystic artery and the cystic duct, clearly delineating the two structures. These were clipped with a 5 mm clip biostatistics professor and divided. The peritoneum was incised with hook cautery, and the gallbladder was taken from the liver bed, ensuring hemostatis. The endocatch bag was placed in the abdomen and the gallbladder was then removed from the abdomen. The liver bed was examined and the trocars removed under direct visualization. The insufflation was then terminated. The epigastric incision was closed with a O-vicryl suture using a suture passer device. The skin incisions were closed using 4-0 Monocryl sutures. All the wounds dressed with dermabond. The patient tolerated the procedure well, was extubated and taken to the recovery room in satisfactory condition. Finding(s): cholelithiasis Intra-Operative Complications: none Specimens Removed: Gallbladder Estimated Blood Loss: <15ml Complications: none immediate
[2022-06-03] MEDS: HYDROmorphone 0.5 MG/0.5 ML INJ IV PRN ×2 (20:40→23:39)
[2022-06-03] MEDS: ONDANSETRON 4 MG/2 ML INJ IV PRN (20:40)
[2022-06-04] MEDS: INSULIN LISPRO 100 UNIT/ML SUB-Q SCH ×4 (02:44→10:34)
[2022-06-04] MEDS: SODIUM CHLORIDE 0.9% 1000 ML 1,000 ML IV SCH (03:03)
[2022-06-04] MEDS: HYDROmorphone 0.5 MG/0.5 ML INJ IV PRN (03:06)
[2022-06-04 06:05] LABS: Basophils % (Auto) 0.3 % (0.0-1.8); Eosinophils # (Auto) 0.1 K/mm3 (0.0-0.4); Eosinophils % (Auto) 0.8 % (0.0-4.3); Hematocrit 32.6 % (30.3-42.9); Hemoglobin 10.8 gm/dl (10.1-14.3); Lymphocytes # (Auto) 0.9 K/mm3 (1.2-5.4); Lymphocytes % (Auto) 10.1 % (13.4-35.0); Mean Corpuscular HGB Conc 33 % (30-34); Mean Corpuscular Volume 81 fl (79-97); Monocytes # (Auto) 0.6 K/mm3 (0.0-0.8); Platelet Count 298 K/mm3 (140-440); Red Blood Count 4.04 M/mm3 (3.65-5.03); Red Cell Distribution Width 16.9 % (13.2-15.2)
[2022-06-04 06:18] LABS: BUN/Creatinine Ratio 9; Blood Urea Nitrogen 9 mg/dL (7-17); Calcium 8.2 mg/dL (8.4-10.2); Hemolysis Index 4
[2022-06-04] MEDS: ONDANSETRON 4 MG/2 ML INJ IV PRN (08:08)
[2022-06-04] MEDS: FAMOTIDINE 20 MG/2 ML INJ IV SCH (10:33)
[2022-06-04] MEDS ORDERED: amLODIPine 10 MG TAB PO SCH (11:00)
--- NOTE | 2022-06-04 12:00 | Discharge Summary ---
Providers - Providers Date of Admission: 06/02/22 11:13 Attending physician: TONNY BUCKLEY MD 06/02/22 Consult to Case Management [CONS] Routine Services Needed at Discharge: Home Health Services Notified:: special education case manager 06/02/22 10:29 Consult to Physician [CONS] Urgent Comment: Consulting Provider: ALEXANDRA BELTRAN Physician Instructions: Reason For Exam: Abdominal pain, distended gallbladder Primary care physician: LIANG STEEL Hospitalization Condition: Fair Disposition: 30 STILL A PATIENT Exam - Constitutional Vitals: Temp Pulse Resp BP Pulse Ox 98.1 F 74 17 152/88 93 06/04/22 08:31 06/04/22 08:31 06/04/22 08:31 06/04/22 08:31 06/04/22 08:31 Plan Care Plan Goals: Please follow up with your primary care provider. Please schedule a follow up appointment with Dr. Beltran in the next two weeks. Please take all medications as prescribed. Follow up with: LIANG STEEL MD [Primary Care Provider] - 3-5 Days Forms: Work/School Release Form Prescriptions: oxyCODONE /ACETAMINOPHEN [Percocet 5/325] 1 tab PO Q4HR PRN 3 Days #18 tab PRN Reason: Pain, Moderate (4-6) Ondansetron [Zofran ODT TAB] 4 mg PO Q8HR PRN 7 Days #21 tab.rapdis PRN Reason: Nausea
--- NOTE | 2022-06-04 12:04 | Progress Note ---
Assessment and Plan Postop day #1 status post lap cholecystectomy for symptomatic cholelithiasis. Afebrile and stable. Okay to be discharge from general surgery perspective and follow-up in the office in 2 weeks. Patient can advance diet as tolerated. Subjective Date of service: 06/04/22 Narrative: No acute events overnight. Patient complains of some abdominal pain that is tolerable. Denies any nausea or vomiting. Objective Vital Signs - 12hr 06/04/22 06/04/22 06/04/22 01:00 03:58 08:31 Temperature 98.1 F 98.1 F Pulse Rate 70 74 Respiratory 18 17 Rate Respiratory 20 Rate [Abdomen] Blood Pressure 171/101 152/88 O2 Sat by Pulse 98 95 93 Oximetry - General physical appearance well developed, no distress, moderate pain - Respiratory normal expansion, normal respiratory effort - Abdomen soft, other (Incisions clean, dry, and intact. Appropriately tender to palpation.) - Labs 06/04/22 05:27 06/04/22 05:27 Diabetes panel 06/04/22 Range/Units 05:27 Sodium 141 (137-145) mmol/L Potassium 3.5 L (3.6-5.0) mmol/L Chloride 104.3 (98-107) mmol/L Carbon Dioxide 24 (22-30) mmol/L BUN 9 (7-17) mg/dL Creatinine 1.0 (0.6-1.2) mg/dL Glucose 159 H (65-100) mg/dL Calcium 8.2 L (8.4-10.2) mg/dL Calcium panel 06/04/22 Range/Units 05:27 Calcium 8.2 L (8.4-10.2) mg/dL Pituitary panel 06/04/22 Range/Units 05:27 Sodium 141 (137-145) mmol/L Potassium 3.5 L (3.6-5.0) mmol/L Chloride 104.3 (98-107) mmol/L Carbon Dioxide 24 (22-30) mmol/L BUN 9 (7-17) mg/dL Creatinine 1.0 (0.6-1.2) mg/dL Glucose 159 H (65-100) mg/dL Calcium 8.2 L (8.4-10.2) mg/dL Adrenal panel 06/04/22 Range/Units 05:27 Sodium 141 (137-145) mmol/L Potassium 3.5 L (3.6-5.0) mmol/L Chloride 104.3 (98-107) mmol/L Carbon Dioxide 24 (22-30) mmol/L BUN 9 (7-17) mg/dL Creatinine 1.0 (0.6-1.2) mg/dL Glucose 159 H (65-100) mg/dL Calcium 8.2 L (8.4-10.2) mg/dL
[2022-06-04 12:27] VITALS: BP 175/93
--- NOTE | 2022-06-04 13:16 | Electrocardiograph Report ---
[facility] Test Date: 2022-06-03 Test Time: 14:36:11 Pat Name: NOLA RANDOLPH Department: Room: A451 1 Gender: F Pediatric Radiologist: WILFREDO : 1960 Requested By: MARITZA LYMAN Order Number: [id number] Reading MD: Jai Suarez Measurements Intervals [place] Rate: 72 P: 60 VA: 158 QRS: 52 QRSD: 85 T: 56 QT: 400 QTc: 439 Interpretive Statements Sinus rhythm Probable LVH with secondary repol abnrm No previous ECG available for comparison Electronically Signed On 06-04-2022 13:16:15 EDT by Jai Suarez
--- NOTE | 2022-06-04 15:16 | Post Anesthesia Evaluation ---
- Post Anesthesia Evaluation Patient Participated: Yes Airway Patent: Yes Stable Respiratory Function: Yes Nausea/Vomiting: No Temp > 96.8F: Yes Pain Manageable: Yes Adequeate Hydration: Yes Anesthesia Complications: No Block Receding Appropriately: Not Applicable Patient on Ventilator: No
[2022-06-09] MEDS ORDERED: cloNIDine TTS 0.3 MG/24 HR PATCH TD SCH (21:00)
== END 2022-06-04 17:00 | disposition home or self-care (01) | DRG 417 ==
LOC: ED 03:59 → 4A 11:13
PROVIDERS: ADMIT Internal Medicine; ATTEND Student in an Organized Health Care Education/Training Program
PROC: 0FT44ZZ Resection of Gallbladder, Percutaneous Endoscopic Approach (ICD-10-PCS; principal; 2022-06-03)
DX: K80.12 Calculus of gallbladder with acute and chronic cholecystitis without obstruction (principal); N17.0 Acute kidney failure with tubular necrosis; I10 Essential (primary) hypertension; E11.9 Type 2 diabetes mellitus without complications; E78.5 Hyperlipidemia, unspecified; E83.42 Hypomagnesemia; M10.9 Gout, unspecified; I25.10 Atherosclerotic heart disease of native coronary artery without angina pectoris; Z86.73 Personal history of transient ischemic attack (TIA), and cerebral infarction without residual deficits; Z87.891 Personal history of nicotine dependence; Z98.51 Tubal ligation status; K21.9 Gastro-esophageal reflux disease without esophagitis
CPT/HCPCS: 36415; 70450; 74176; 76705; 76830; 76856; 80048; 80053; 80076; 80320; 81001; 82550; 82962; 83036; 83690; 83735; 84443; 84484; 85025; 85610; 88304; 93005; 96374; 96375; 99285; G0378; J1815; J3490; Q9967; G0480; J0690; J1100; J1170; J1956; J2270; J2405; J2543; J2704; J2710; J3475; J7030; J7040; J7120; Q0162